=== PATIENT | male | born 1940 | race African-American/Black ===

== ENCOUNTER → 2024-05-17 | Day surgery (SDC) | payer MEDICARE ==
[2024-05-15 11:48] LABS: BASOPHILS # (AUTO) 0.1 (0.0-0.1); BASOPHILS % 0.5 % (0.0-1.0); EOSINOPHILS # (AUTO) 0.3 (0.0-0.4); EOSINOPHILS % 2.8 % (0.0-6.0); HEMATOCRIT 30.5 % (38.2-49.6); HEMOGLOBIN 9.9 g/dL (14.0-18.0); LYMPHOCYTES # (AUTO) 1.5 (1.0-3.2); MEAN CORPUSCULAR HEMOGLOBIN 33.3 pg (28-32); MEAN CORPUSCULAR HGB CONC 32.5 g/dL (31-35); MEAN CORPUSCULAR VOLUME 102.7 fL (81-99); MONOCYTES # (AUTO) 0.9 (0.2-0.8); MONOCYTES % 8.5 % (4.4-11.3); NEUTROPHILS # (AUTO) 7.8 (2.1-6.9); NEUTROPHILS % 72.5 % (38.7-80.0); PLATELET COUNT 247 x10e3/uL (140-360); RED BLOOD COUNT 2.97 x10e6/uL (4.3-5.7); RED CELL DISTRIBUTION WIDTH 13.6 % (11.7-14.4)
[2024-05-15 12:12] LABS: ANION GAP 14.8 mmol/L (8-16); CALCIUM 8.4 mg/dL (8.4-10.2); CREATININE, SERUM 5.62 mg/dL (0.72-1.25); POTASSIUM 3.8 mmol/L (3.5-5.1)
[2024-05-15 13:07] LABS: INR 1.1; PROTHROMBIN TIME 14.8 seconds (11.9-14.5)
[2024-05-15 13:08] LABS: PARTIAL THROMBOPLASTIN TIME 31.9 seconds (23.8-35.5)
[~2024-05-17] MED LIST: AMLODIPINE BESY10 MG PO; CALCIUM PO; CIPRO250 MG PO; FLOMAX0.4 MG PO; HYDRALAZINE HC100 MG PO; HYDROCODON-ACE1 EA11 PO; IOPAMIDOL 610MG/1ML 300 MG/ML VIAL IV ONE; RENA-VITE RX T1 EACH PO; RENVELA800 MG PO; SODIUM BICARBO650 MG PO
[2024-05-17] MEDS: CEFTRIAXONE 1 GM VIAL ONE (06:15)
[2024-05-17] MEDS: SODIUM CHLORIDE 0.9% 500ML 500 ML ONE (06:15)
[2024-05-17 07:37] VITALS: TEMP 97.8
[2024-05-17 08:27] VITALS: BP 104/55; PULSE 64; RESP 18; O2SAT 98
== END | disposition home or self-care (01) ==
LOC: OR 05:20
PROVIDERS: ATTEND Urology
DX: N20.1 Calculus of ureter (principal); N13.30 Unspecified hydronephrosis; N40.0 Benign prostatic hyperplasia without lower urinary tract symptoms; I12.0 Hypertensive chronic kidney disease with stage 5 chronic kidney disease or end stage renal disease; N18.6 End stage renal disease; G40.909 Epilepsy, unspecified, not intractable, without status epilepticus; Z01.810 Encounter for preprocedural cardiovascular examination; Z01.812 Encounter for preprocedural laboratory examination; Z01.818 Encounter for other preprocedural examination; Z79.82 Long term (current) use of aspirin; Z79.899 Other long term (current) drug therapy; Z99.2 Dependence on renal dialysis; Z86.73 Personal history of transient ischemic attack (TIA), and cerebral infarction without residual deficits
CPT/HCPCS: 36415 ×2; 52351; 71046; 74420; 80048; 84132; 85025; 85610; 85730; 93005; C1758; C1769; J0696; J7040; Q9967